=== PATIENT | female | born 1980 | race Caucasian/White ===

== ENCOUNTER 2021-12-22 22:15 | Emergency (ER) ==
[2021-12-23] MEDS ORDERED: carBAMazepine 200 MG TAB PO SCH (02:15)
== END 2021-12-23 02:47 | disposition home or self-care (01) ==
LOC: ERS 22:15
DX: G40.909 Epilepsy, unspecified, not intractable, without status epilepticus (principal); I10 Essential (primary) hypertension; F17.210 Nicotine dependence, cigarettes, uncomplicated
CPT/HCPCS: 96360; 96361

== ENCOUNTER 2021-12-26 09:18 | Emergency (ER) | payer SELFPAY ==
[2021-12-26] MEDS ORDERED: carBAMazepine 200 MG TAB PO SCH (10:30)
[2021-12-26 11:38] LABS: Bacteria/HPF 2+ HPF (None Seen); Bilirubin Negative (Negative); Blood, Urine Negative (Negative); Clarity Turbid (Clear); Glucose, Urine (Dipstick) Normal (Negative); Ketone, Urine Negative (Negative); Leukocyte 500 Leu/uL (Negative); Nitrite 2+ (Negative); Protein, Urine (Dipstick) 10 mg/dL (Neg-Trace); Specific Gravity, Urine 1.021 (1.002-1.036); Squamous Epithelial 21-50 HPF (0-3); Urobilinogen Normal mg/dL (Less than 2); WBC/HPF Greater than 50 HPF (0-3)
[2021-12-26 11:46] LABS: Pregnancy Test - Urine (BHCG) Negative (Negative); Pregu Control Background? CLEAR/WHITE (CLR/WHITE); Pregu Control Bar Appear? YES (CONTROL BAR); Specific Gravity 1.021 (1.002-1.036)
== END 2021-12-26 11:55 | disposition home or self-care (01) ==
LOC: ERS 09:18
DX: R56.9 Unspecified convulsions (principal); N39.0 Urinary tract infection, site not specified; I10 Essential (primary) hypertension; F17.210 Nicotine dependence, cigarettes, uncomplicated; Z79.899 Other long term (current) drug therapy
CPT/HCPCS: 81003; 81015; 81025; 93005

== ENCOUNTER 2021-12-28 13:03 | Emergency (ER) | payer SELFPAY ==
[2021-12-28] MEDS ORDERED: Fosfomycin 3 GM/Packet PO SCH (13:30)
[2021-12-28] MEDS ORDERED: levETIRAcetam 500 MG TAB PO SCH (13:30)
== END 2021-12-28 14:24 | disposition home or self-care (01) ==
LOC: ERS 13:03
DX: G40.909 Epilepsy, unspecified, not intractable, without status epilepticus (principal); N39.0 Urinary tract infection, site not specified; I10 Essential (primary) hypertension; F17.210 Nicotine dependence, cigarettes, uncomplicated; Z79.899 Other long term (current) drug therapy
CPT/HCPCS: 36416; 99284

== ENCOUNTER 2021-12-29 15:13 | Emergency (ER) | payer SELFPAY ==
[2021-12-29] MEDS ORDERED: Oxymetazoline HCl 0.05% (30 ML BOT) ONE (16:06)
== END 2021-12-29 16:08 | disposition home or self-care (01) ==
LOC: ERS 15:13
DX: U07.1 COVID-19 (principal); F17.210 Nicotine dependence, cigarettes, uncomplicated
CPT/HCPCS: 99283; U0003; U0005

== ENCOUNTER 2021-12-30 19:22 | Emergency (ER) | payer SELFPAY | END 2021-12-30 23:12 | disposition left against medical advice (07) | LOC: ERS 19:22 | DX: Z53.21 Procedure and treatment not carried out due to patient leaving prior to being seen by health care provider (principal) ==

== ENCOUNTER 2022-01-02 19:47 | Emergency (ER) | payer SELFPAY ==
[2022-01-02 22:11] LABS: Bilirubin Negative (Negative); Blood, Urine Negative (Negative); Clarity Clear (Clear); Glucose, Urine (Dipstick) Normal (Negative); Ketone, Urine Negative (Negative); Leukocyte 500 Leu/uL (Negative); Nitrite Negative (Negative); Pregnancy Test - Urine (BHCG) Negative (Negative); Pregu Control Background? CLEAR/WHITE (CLR/WHITE); Pregu Control Bar Appear? YES (CONTROL BAR); Protein, Urine (Dipstick) Negative (Neg-Trace); RBC/HPF 0-3 HPF (0-3); Specific Gravity 1.009 (1.002-1.036); Specific Gravity, Urine 1.009 (1.002-1.036); Squamous Epithelial 0-3 HPF (0-3); Urobilinogen Normal mg/dL (Less than 2)
[2022-01-02 22:21] LABS: Bacteria/HPF Rare-Few HPF (None Seen); Trichomonas/HPF 1+ HPF (None Seen)
[2022-01-02] MEDS ORDERED: Fluconazole 100 MG TAB PO SCH (23:00)
[2022-01-02] MEDS ORDERED: Ondansetron ODT 4 MG TAB ONE (23:15)
[2022-01-02] MEDS ORDERED: metroNIDAZOLE 250 MG TAB ONE (23:15)
== END 2022-01-02 23:41 | disposition home or self-care (01) ==
LOC: ERS 19:47
DX: B37.3 Candidiasis of vulva and vagina (principal); A59.9 Trichomoniasis, unspecified; I10 Essential (primary) hypertension; G43.909 Migraine, unspecified, not intractable, without status migrainosus; F17.290 Nicotine dependence, other tobacco product, uncomplicated; Z79.899 Other long term (current) drug therapy
CPT/HCPCS: 81003; 81015; 81025; 99283; Q0162

== ENCOUNTER 2022-01-07 15:17 | Emergency (ER) | payer SELFPAY | END 2022-01-07 16:15 | disposition home or self-care (01) | LOC: ERS 15:17 | DX: R56.9 Unspecified convulsions (principal); U07.1 COVID-19; I10 Essential (primary) hypertension; F17.290 Nicotine dependence, other tobacco product, uncomplicated; Z79.899 Other long term (current) drug therapy | CPT/HCPCS: 93005; 99283 ==

== ENCOUNTER 2022-01-10 16:39 | Emergency (ER) | payer SELFPAY | END 2022-01-10 18:46 | disposition home or self-care (01) | LOC: ERS 16:39 | DX: H92.02 Otalgia, left ear (principal) | CPT/HCPCS: 99281 ==

== ENCOUNTER 2022-01-15 11:00 | Emergency (ER) | payer SELFPAY | END 2022-01-15 11:56 | disposition home or self-care (01) | LOC: ERS 11:00 | DX: R56.9 Unspecified convulsions (principal); I10 Essential (primary) hypertension; Z79.899 Other long term (current) drug therapy | CPT/HCPCS: 99281 ==

== ENCOUNTER 2022-01-17 20:10 | Emergency (ER) | payer SELFPAY ==
[2022-01-17 21:07] LABS: Pregnancy Test - Urine (BHCG) Negative (Negative); Pregu Control Background? CLEAR/WHITE (CLR/WHITE); Pregu Control Bar Appear? YES (CONTROL BAR); Specific Gravity 1.018 (1.002-1.036)
[2022-01-17 22:07] LABS: Bilirubin Negative (Negative); Blood, Urine Negative (Negative); Clarity Clear (Clear); Glucose, Urine (Dipstick) Normal (Negative); Ketone, Urine Negative (Negative); Leukocyte 250 Leu/uL (Negative); Nitrite Negative (Negative); Protein, Urine (Dipstick) Negative (Neg-Trace); RBC/HPF 0-3 HPF (0-3); Specific Gravity, Urine 1.019 (1.002-1.036); Urobilinogen Normal mg/dL (Less than 2); pH, Urine 5.5 (5.0-9.0)
[2022-01-17 22:08] LABS: Bacteria/HPF 1+ HPF (None Seen)
== END 2022-01-17 22:31 | disposition home or self-care (01) ==
LOC: ERS 20:10
DX: N12 Tubulo-interstitial nephritis, not specified as acute or chronic (principal); I10 Essential (primary) hypertension; Z79.899 Other long term (current) drug therapy
CPT/HCPCS: 74176; 81003; 81015; 81025; 99283